=== PATIENT | female | born 1955 | race Caucasian/White ===

== ENCOUNTER 2024-03-23 10:33 | Outpatient (CLI) | payer MEDICARE, MEDICAID | END 2024-03-23 23:59 | disposition home or self-care (01) | LOC: RAD 10:33 | PROVIDERS: ATTEND Podiatrist Foot & Ankle Surgery | DX: M77.42 Metatarsalgia, left foot (principal); M72.2 Plantar fascial fibromatosis; M77.41 Metatarsalgia, right foot; M79.89 Other specified soft tissue disorders; M79.671 Pain in right foot; M79.672 Pain in left foot; Z68.20 Body mass index [BMI] 20.0-20.9, adult; Z72.0 Tobacco use; Z98.890 Other specified postprocedural states | CPT/HCPCS: 73700 ==

== ENCOUNTER 2024-10-19 14:40 | Emergency (ER) | payer MEDICARE, MEDICAID ==
[~2024-10-19] VITALS: Ht 162.6 cm; Wt 48.4 kg
--- NOTE | 2024-10-19 15:29 | Physician Documentation ---
History of Present Illness ~ Chief Complaint: Rash Stated Complaint: RASH Time Seen by MD: 15:20 HPI Patient is a 69-year-old female that presents to emergency department for rash x2 days accompanied by nausea and vomiting. Unsure if the nausea and vomiting are related to the rash. Patient reports that she was taking an old medication that may have caused a rash or she was just seen for procedure on her foot to Dr. administered a topical solution to her foot that she thinks may have also caused a rash. Patient is currently not in her mouth eyes airway no difficulty breathing. Rash is primarily across groin medial thighs arm pit breast and trunk. Measures urticarial and pruritic. Medication Reconciliation Allergies: Uncoded Allergies: PENICIILIN (Allergy, Unknown, 10/19/24) Scheduled Prednisone* (Prednisone*), 2 TAB PO DAILY Physical Exam Vital Signs: Temperature: 98.1, Source: Temporal, Heart Rate: 96, Respiratory Rate: 17, BP: 127/82, Pulse Oximetry: 97, Weight: 48.350 Oxygen Flow Rate: 0 Progress Results/Orders Results/Orders Completed Orders - [facility] Cbc/Diff (10/19/24 15:21) CMP (10/19/24 15:21) Methylprednisolone Sod Succ (Solumedrol (10/19/24 15:25) Diphenhydramine Oral Solution (Hydramine (10/19/24 15:25) Ondansetron Disint. Tablet (Zofran Odt T (10/19/24 15:25) Famotidine Tablet (Pepcid Tablet) (10/19/24 15:25) Ua W/Microscopic, Cult If Ind (10/19/24 14:50) Vital Signs 10/19/24 10/19/24 10/19/24 14:53 16:23 17:08 Temp 98.1 98.1 Pulse 96 86 86 Resp 17 15 16 B/P (MAP) 127/82 127/80 (96) 120/76 Pulse Ox 97 98 97 O2 Flow Rate 0 0 Laboratory Tests Test 10/19/24 14:50 10/19/24 15:37 Urine Specimen Description Cln catch midstream Urine Color Yellow Urine Clarity Slightly cloudy Urine pH 5.5 Urine Specific [place] >=1.030 Urine Protein Trace Urine Glucose (UA) Negative Urine Ketones Negative Urine Occult Blood Negative Urine Nitrite Negative Urine Bilirubin Small Urine Urobilinogen 0.2 Urine Leukocyte Esterase Negative Urine RBC 3-10 Urine WBC 0-4 Urine Squamous Epithelial Cells Many Urine Bacteria Few Urine Hyaline Casts 0-3 Urine Culture Indicated Not ind Volume Urine Centrifuged 2 ml Urine Comment Low volume White Blood Count 16.1 H Red Blood Count 5.06 Hemoglobin 15.8 Hematocrit 45.7 H Mean Corpuscular Volume 90.4 Mean Corpuscular Hemoglobin 31.3 H Mean Corpuscular Hemoglobin Concent 34.6 Red Cell Distribution Width 15.2 H Platelet Count 401 Mean Platelet Volume 7.7 Neutrophils (%) (Auto) 73.8 Lymphocytes (%) (Auto) 20.3 L Monocytes (%) (Auto) 4.6 Eosinophils (%) (Auto) 0.3 Basophils (%) (Auto) 1.0 Neutrophils # (Auto) 11.8 H Lymphocytes # (Auto) 3.3 Monocytes # (Auto) 0.7 Eosinophils # (Auto) 0.0 Basophils # (Auto) 0.2 CBC Comment Sodium Level 139 Potassium Level 4.4 Chloride Level 104 Carbon Dioxide Level 26.8 Anion Gap 8 Blood Urea Nitrogen 13 Creatinine 1.02 H Estimated GFR/1.73 m2 54 BUN/Creatinine Ratio 12.7 Glucose Level 116 H Calcium Level 10.5 H Total Bilirubin 0.5 Aspartate Amino Transf (AST/SGOT) 14 Alanine Aminotransferase (ALT/SGPT) 16 Alkaline Phosphatase 65 Total Protein 7.7 Albumin 4.1 Globulin 3.6 Albumin/Globulin Ratio 1.1 Chemistry Comments Medical Decision Making Findings This patient presents with symptoms consistent with acute hypersensitivity reaction, likely acute allergic reaction. Presentation not consistent with acute anaphylaxis (lack of pulmonary, dermatologic, cardiovascular or GI symptoms, lack of hypotension or exposure to known allergen), angioedema, serum sickness (no recent drug exposure, lacks fevers, arthralgias). No evidence of airway compromise or shock at this time. Patient improved with H1/H2 blockers, steroids. No need for epinephrine. Prescribed patient EpiPen Rx, and patient to keep food diary, and to follow up with PMD for allergy testing. Patient will follow up with primary care provider. Patient was provided with strict return precautions to the emergency department specifically airway involvement shortness for breath her any other emergent concerns. Differential Dx:Considerations: Include: Abscess, AIDS/HIV, Anthrax (cutaneous), Atopic dermatitis, Candidiasis, Contact dermatitis, Drug reaction, Erythema multiforme, Erysipelas, Gangrene, Herpes zoster, Herpes simplex, Hidradenitis suppurativa, Impetigo, Intertrigo, Lymes disease, Molluscum contagiosum, Osteomyelitis, Pediculosis, Pityriasis rosea, Psoriaisis, RMSF, Rosacea, Scabies, Scarlet fever, Tinea, Urticaria, Varicella, Viral exanthema, Other Departure Disposition: 01 HOME / SELF CARE / HOMELESS Impression: Primary Impression: Urticaria Condition: Stable Discharge Instructions: Hives, Pruritus Additional Instructions: Today you were evaluated for an idiopathic urticaria or rash. You are given steroids Benadryl and famotidine. Rash has greatly improved. Discharged with strict instructions instructions to return to the emergency department if you have any worsening or recurrent symptoms her any additional concerning symptoms that we discussed here today. Involving airway shortness for breath or any other emergent concerns. He has follow up with your primary care provider. Referrals: NO PRIMARY CARE PROVIDER (PCP) Education Educated: Patient Educated regarding: treatment, need for follow up Signature Scribe Signature: A Attestation: Scribed for Fina Garcia by CAROL James . 10/21/24 17:40 [facility]IA Oct 19, 2024 15:29
[2024-10-19] MEDS: diphenhydrAMINE 25 MG/10 ML UD oral solution PO PRN (15:32)
[2024-10-19] MEDS: ondansetron 4mg rapidly disintigrating tab PO ONE (15:32)
[2024-10-19 15:48] LABS: MEAN PLATELET VOLUME 7.7 FL (7.4-10.4); RED CELL DISTRIBUTION WIDTH 15.2 % (11.5-14.5)
[2024-10-19 15:49] LABS: LEUKOCYTE ESTERASE ,URINE NEGATIVE (Neg); NITRITES, URINE NEGATIVE (Neg); OCCULT BLOOD,URINE NEGATIVE (Neg)
[2024-10-19 15:51] LABS: UA COLLECTION TYPE CLN CATCH MIDSTREAM
[2024-10-19 15:57] LABS: HYALINE CASTS 0-3 /LPF (NEGATIVE); SQUAMOUS EPITHELIAL CELL,UR MANY /LPF (FEW)
[2024-10-19 16:10] LABS: CREATININE 1.02 MG/DL (0.40-0.90); TOTAL CARBON DIOXIDE 26.8 MMOL/L (24-32); eCRCL 40 ML/MIN; eGFR 54 ML/MIN
[2024-10-19 17:08] VITALS: BP 120/76; PULSE 86; RESP 16; TEMP 98.1; O2SAT 97
== END 2024-10-19 17:10 | disposition home or self-care (01) ==
LOC: ER 14:40
DX: L50.9 Urticaria, unspecified (principal); Z79.899 Other long term (current) drug therapy
CPT/HCPCS: 36415; 80053; 81001; 85025; 96372; 99284; J2919; Q0163

== ENCOUNTER 2024-10-21 13:25 | Emergency (ER) | payer MEDICARE, MEDICAID ==
[~2024-10-21] VITALS: Ht 162.6 cm; Wt 48.4 kg
[2024-10-21 13:29] VITALS: TEMP 97.5
--- NOTE | 2024-10-21 13:57 | Physician Documentation ---
History of Present Illness General Chief Complaint: Allergic Reaction Stated Complaint: ALLERGIC REACTION Time Seen by MD: 13:48 History of Present Illness Initial Comments The patient is a 69-year-old female brought in by ambulance with an ongoing allergic reaction. The patient underwent foot surgery on October 06, 2024. On October 09 she was prescribed a 10 day course of cephalexin, which she took. On the evening of October 17 she began developing some itching and slight rash. Two days later, on October 19 (two days ago) she was seen here for allergy and given a single dose of Solu-Medrol 125 mg in addition to Benadryl and famotidine. She was discharged from here and advised to get [id number] famotidine and Benadryl. No steroids were prescribed. She continued to have some rash yesterday and it became worse with facial swelling but no wheezing or airway compromise today. However, she phoned 911 and paramedics gave her Benadryl and famotidine enroute. She had improved considerably by the time she arrived here. Medication Reconciliation Allergies: Uncoded Allergies: PENICIILIN (Allergy, Unknown, 10/19/24) Review of Systems ROS Constitutional: Denies chills, fatigue, fever, weight gain or weight loss. HEENT: Denies hearing loss, sinus pressure or visual changes. Respiratory: Denies cough, shortness of breath or wheezing. Cardiovascular: Denies chest pain, pain while walking (claudication), edema or palpitations. Gastrointestinal: Denies abdominal pain, blood in stool, constipation, diarrhea, heartburn, loss of appetite, nausea or vomiting. Genitourinary: Denies painful urination (dysuria), excessive amount of urine (polyuria) or urinary frequency. Metabolic/Endocrine: Denies cold intolerance, heat intolerance, excessive thirst (polydipsia) or excessive hunger (polyphagia). Neurological: Denies dizziness, extremity numbness, extremity weakness, headaches, seizures or tremors. Psychiatric: Denies anxiety or depression. Integumentary: Rash on face without swelling, rash on abdomen Musculoskeletal: Denies back pain, joint pain, joint swelling or neck pain. Hematologic: Denies easily bleeding, easily bruises, lymphedema or issues with blood clots. Immunologic: Denies food allergies or seasonal allergies. Physical Exam Physical Exam Vital Signs: Temperature: 97.5, Source: Oral, Heart Rate: 83, Respiratory Rate: 15, BP: 128/70, Pulse Oximetry: 94, Weight: 48.350 Physical Exam Physical Exam Vitals and nursing note reviewed. Constitutional: General: Patient is awake, alert, oriented x 4 in no acute distress and well appearing. Speech is clear and lucid. Appearance: Normal appearance. Patient is not ill-appearing, toxic-appearing or diaphoretic. HENT: Head: Normocephalic and atraumatic. Mouth/Throat: Mouth: Mucous membranes are moist. Pharynx: Oropharynx is clear. Eyes: General: No scleral icterus. Extraocular Movements: Extraocular movements intact. Pupils: Pupils are equal, round, and reactive to light. Neck: Supple, no Kernig or Brudzinski sign. Cardiovascular: Rate and Rhythm: Normal rate and regular rhythm. Heart sounds: No murmur heard. Pulmonary: Effort: No respiratory distress. Breath sounds: No wheezing, rhonchi or rales. Abdominal: General: There is no distension. Palpations: There is no fluid wave, hepatomegaly or mass. Tenderness: There is no abdominal tenderness. There is no guarding. Musculoskeletal: General: No swelling or deformity. Skin: Coloration: Skin is not jaundiced. Findings: Facial rash but little or no swelling and rash on abdomen (papular) Neurological: Mental Status: Patient is alert. Progress Results/Orders Results/Orders Completed Orders - KASHIF PEREZ MD Methylprednisolone Sod Succ (Solumedrol (10/21/24 13:50) Medications Received in ER Medications (Trade) Dose Ordered Sig/Zackery Route PRN Reason Start Time Stop Time Status Last Admin Dose Admin (SoluMEDROL 125mg inj) 125 mg ONCE ONCE IV 10/21/24 13:50 10/21/24 14:03 DC 10/21/24 14:46 125 MG Vital Signs 10/21/24 10/21/24 13:29 13:45 Temp 97.5 Pulse 80 83 Resp 20 15 B/P (MAP) 136/80 128/70 (89) Pulse Ox 97 94 Medical Decision Making Findings It is not clear whether the cephalexin caused this rash but it did begin toward the end of a 10 day course. She had no other known new exposures. She was treated effectively two days ago but there were no steroids prescribed. I am giving her Solu-Medrol 125 mg here and my plan will be to prescribe a five day course of prednisone on discharge. I do not feel that she requires treatment with epinephrine. The patient has remained stable here for 2-1/2 hours. I am going to prescribe a five day course of prednisone and Benadryl. I did offer the patient admission but she adamantly refused. Departure Disposition: 01 HOME / SELF CARE / HOMELESS Impression: Primary Impression: Acute allergic reaction Condition: Stable Additional Instructions: Be sure to take the prednisone as directed. Also, be sure to take Benadryl as we discussed, every 6 hours for the next three days. Do not hesitate to return here for worsening symptoms or new/unusual symptoms. It appears that you may be allergic to Keflex and you should let providers know before they give you any medication. It is important to see your doctor or primary care provider. Emergency care may be incomplete without proper follow-up. Symptoms sometimes change or new symptoms might arise after you leave the emergency department. It is important that you call your doctor if you become worse in any way, or return to the emergency department. You are strongly urged to follow-up with your physician to assure complete and thorough care. Please call your doctor's office today, and informed them that you were seen in the emergency department, and that you need to be seen immediately for close follow-up. If you do not have a primary care doctor we encourage you to proactively seek a local physician for close follow-up. Consider local clinics, [facility], or local [facility]. Prior to discharge we spoke at length concerning symptoms that would merit reevaluation, but please return to the emergency department for any symptoms that are concerning to you, and we will be happy to continue your evaluation and treatment. Please note you can always return to the emergency department if you are having difficulty coordinating close follow-up. If medications were prescribed, you should fill them at your local pharmacy immediately and take only as prescribed. Bring your new medications to your doctors follow-up visit to discuss any changes that would be necessary. Please check [employer] for any results you did not receive in the Emergency Department: often we are unable to get all your tests back before you leave, and these tests need to be reviewed by your PCP and yourself. You can also call Medical Records if you are unable to access the internet to see MyChart. Return to the emergency department immediately for worsening chest pain, difficulty breathing, sweating, or other concerning emergent symptoms. Referrals: NO PRIMARY CARE PROVIDER (PCP) Prescriptions Prednisone* (Prednisone*) 20 Mg Tablet 2 TAB PO DAILY, #10 TAB Prov: KASHIF PEREZ MD 10/21/24 Education Educated: Patient Educated regarding: diagnosis, treatment, prognosis Signature Scribe Signature: . Attestation: . KASHIF PEREZ MD Oct 21, 2024 13:57
[2024-10-21] MEDS ORDERED: PRED20TA PO (16:00)
[2024-10-21 16:23] VITALS: BP 117/52; PULSE 63; RESP 18; O2SAT 96
== END 2024-10-21 16:21 | disposition home or self-care (01) ==
LOC: ER 13:26
DX: T78.49XA Other allergy, initial encounter (principal); X58.XXXA Exposure to other specified factors, initial encounter
CPT/HCPCS: 96374; 99283; J2919